=== PATIENT | male | born 1965 | race Caucasian/White ===

== ENCOUNTER 2017-02-15 20:19 | Day surgery (SDC) | payer OTHER ==
[~2017-02-15] VITALS: Ht 180.3 cm; Wt 97.5 kg
[~2017-02-15 20:19] MED LIST: BENADRYL25 MG PO
[2017-02-15] MEDS ORDERED: OXYBUTYNIN CHLOR5 MG PO (20:39)
[2017-02-15] MEDS ORDERED: NEURONTIN400 MG PO (20:40)
[2017-02-15] MEDS ORDERED: EFFEXOR XR150 MG PO (20:40)
--- NOTE | 2017-02-15 23:36 | NUR ---
02/15/17 2336 Rosalva Paula REPORT FROM [employer].
--- NOTE | 2017-02-16 10:38 | HP ---
[facility] [address], [place] [address] Signed DATE OF SERVICE: 02/15/2017 REFERRING PHYSICIAN: Dr. Roz Serra. CHIEF COMPLAINT: Esophageal/gastric foreign body. HISTORY OF PRESENT ILLNESS: Andreas is a 51-year-old gentleman from [facility]. Last year, he swallowed a couple of razors. This year, he decided to swallow 2 or 3 paper clips that he tied together with a string. He was hoping someone would open the door, and it would pull them up to his esophagus and damage his esophagus. Later, the string cut down his esophagus, and now they are other stuck. He was brought to our emergency room for evaluation. The chest x-ray and abdominal x-ray show at least 2 paper clips, one at the GE junction and one in what appears to be the fundus of the stoma c h. I really cannot see a third paper clip, and we have looked through the entire abdomen. In the meantime, he has done well. Of course, he has no shortness of breath or increased work of breathing. He is not systemically ill or toxic. I was asked to see him as a general surgeon here in the ER. PAST MEDICAL HISTORY: Hepatitis C virus, restless legs syndrome, and depression. PAST SURGICAL HISTORY: Left ACL repair with some pins remaining in his knee. He had an upper endoscopy in January 2016 for the razors with Dr. Dick. SOCIAL HISTORY: He does not smoke or drink. Dr. Fede Busch is his primary care provider. He is originally from [place], [place]. He is single. He has no children. FAMILY HISTORY: Not reviewed. REVIEW OF SYSTEMS: He had 10 systems reviewed and seems to be fine otherwise. ALLERGIES: Tetracycline and erythromycin. MEDICATIONS: Oxybutynin, Effexor, meloxicam, Requip, and gabapentin. PHYSICAL EXAMINATION: VITAL SIGNS: His blood pressure is 166/63, heart rate 56, his respiratory rate is 16, his temperature is 98.3. He is 99% on room air. He is 5 feet 11 inches at 97 kg. Electronically Signed By: LUANA JIMENEZ MD 02/16/17 1038 PATIENT NAME: ANDREAS BUCHANAN HISTORY AND PHYSICAL DATE OF : 65 PHYSICIAN: LUANA JIMENEZ MD REPORT #: [id number] REPORT IS CONFIDENTIAL AND NOT TO BE RELEASED WITHOUT AUTHORIZATION [facility] [address] [place] [id number] Signed GENERAL: Andreas is a 51-year-old gentleman lying supine in his ER bed. Two officers are with him. He does not appear systemically ill or toxic. LUNGS: Generally clear to auscultation bilaterally. HEART: Regular rate and rhythm. ABDOMEN: Soft, nontender. LABORATORIES: None. RADIOGRAPHIC STUDIES: His abdominal and chest x-rays are reviewed along with the reports. I can see what looks like a clip at the GE junction and one in the fundus of the stomach. I cannot specifically see a third clip. ASSESSMENT/PLAN: Andreas is a 51-year-old gentleman with an esophageal and gastric foreign body. Our ER doctor did take the time to call [facility] and [facility] who recommended they should probably be removed. Naturally, I was called to come and see him here in the emergency room. I met with Gagan. He went through this last year. He is very familiar with this whole process. We are going to call our crew, and we will go ahead and remove these foreign bodies for him with our upper scope. He understands there is risk, including, but not limited to, gas bloating, crampy abdominal pain, bleeding, perforation requiring surgery, and missed diagnosis. He has expressed understanding and would like to proceed. MD CHIRAG [place]/Darell /[id number] cc: Fede Busch MD Electronically Signed By: LUANA JIMENEZ MD 02/16/17 1038 PATIENT NAME: ANDREAS BUCHANAN HISTORY AND PHYSICAL DATE OF : 65 PHYSICIAN: LUANA JIMENEZ MD REPORT #: [id number] REPORT IS CONFIDENTIAL AND NOT TO BE RELEASED WITHOUT AUTHORIZATION
--- NOTE | 2017-02-16 10:38 | OR ---
[facility] [address] [place], [place] [address] Signed DATE OF SERVICE: 02/15/2017 PREOPERATIVE DIAGNOSIS: Esophageal/gastric foreign body x3. POSTOPERATIVE DIAGNOSIS: Esophageal/gastric foreign body x3. PROCEDURE: Esophagogastroduodenoscopy with foreign body removal x3. ESTIMATED BLOOD LOSS: None. INDICATIONS: Andreas is a 51-year-old gentleman [facility]. He took three paperclips and tied them individually to a string and had swallowed it down his esophagus. He had placed the string on the door and was someone would open the door and rip the paperclips out of his esophagus open to cause damage. Unfortunately, the string got down his esophagus, lost that and decided he better tell the officers. He was brought to our local emergency room for evaluation. On the x-ray, we really can only see two of the clips, but he insisted there were three. He had also eaten at around 4 o'clock this afternoon. I met with Andreas in the ER and I called in the crew. We discovered that Andreas went through this last year when he swallowed several razor blades. Andreas is very familiar with upper endoscopy and foreign body removal. He does understand that there is risk including, but not limited to gas, bloating, crampy abdominal pain, bleeding, perforation requiring surgery, and missed diagnosis. He had expressed understanding and wished to proceed. PROCEDURE NOTE: Andreas was taken into our endoscopy suite and placed in the supine semi-recumbent position. He was placed under general endotracheal tube anesthesia. We used our bite block next to the ET tube. The adult gastroscope was introduced and advanced under direct visualization of the camera down the esophagus. When we got to the GE junction, we could see the orange string that he used from his uniform to tie the paperclips onto the string. We could see the first paperclip, so we grabbed the string and we gently withdrew the string all the way up to the oropharynx along with the three paperclips. All were quite evident to myself and everyone in the room. There was no resistance in pulling the foreign bodies out of the esophagus. We then reinserted the gastroscope all the way back into the stomach. He does have gastritis, but he had quite a bit of food in his stomach as well. The scope was retroflexed and he did not seem to have any bleeding or damage around the GE junction. The scope was withdrawn up through the area of the GE junction and we very carefully examined the entire length of the esophagus, and again no obvious evidence of any damage or perforation that we could see. After this, the gas was suction ed out and the gastroscope removed. Andreas tolerated the procedure quite well. Electronically Signed By: LUANA JIMENEZ MD 02/16/17 1038 PATIENT NAME: ANDREAS BUCHANAN OPERATIVE REPORT DATE OF : 65 PHYSICIAN: LUANA JIMENEZ MD REPORT #: [id number] REPORT IS CONFIDENTIAL AND NOT TO BE RELEASED WITHOUT AUTHORIZATION [address] [address] Signed RECOMMENDATIONS: Andreas can follow up in my office as needed. MD CHIRAG [place]/Modl /[id number] cc: MD Fede [place] M.D Electronically Signed By: LUANA JIMENEZ MD 02/16/17 1038 PATIENT NAME: ANDREAS BUCHANAN OPERATIVE REPORT DATE OF : 65 PHYSICIAN: LUANA JIMENEZ MD REPORT #: [id number] REPORT IS CONFIDENTIAL AND NOT TO BE RELEASED WITHOUT AUTHORIZATION
[2017-07-10] MEDS ORDERED: NEURONTIN800 MG PO (07:21)
[2017-07-10] MEDS ORDERED: DIPHENHYDRAMINE50 M1 PO (07:22)
[2017-07-10] MEDS ORDERED: ADULT LOW DOSE81 MG PO (07:23)
[2017-07-10] MEDS ORDERED: HYDROCODON-ACE1 EA12 PO (12:23)
== END 2017-02-15 23:59 | disposition home or self-care (01) ==
LOC: ED 20:19 → DS 23:28
PROVIDERS: Colon & Rectal Surgery
PROC: 0DC58ZZ Extirpation of Matter from Esophagus, Via Natural or Artificial Opening Endoscopic (ICD-10-PCS; principal; 2017-02-15 23:21)
DX: T18.198A Other foreign object in esophagus causing other injury, initial encounter (principal); G25.81 Restless legs syndrome; F32.9 Major depressive disorder, single episode, unspecified; Z98.890 Other specified postprocedural states
CPT/HCPCS: 00740; 71010; 74000; 99285; J0330; J2704

== ENCOUNTER 2017-02-19 02:56 | Emergency (ER) | payer OTHER ==
[~2017-02-19] VITALS: Ht 180.3 cm; Wt 97.5 kg
[~2017-02-19 02:56] MED LIST changes: +EFFEXOR XR150 MG PO; +NEURONTIN400 MG PO; +OXYBUTYNIN CHLOR5 MG PO
[2017-07-10] MEDS ORDERED: NEURONTIN800 MG PO (07:21)
[2017-07-10] MEDS ORDERED: DIPHENHYDRAMINE50 M1 PO (07:22)
[2017-07-10] MEDS ORDERED: ADULT LOW DOSE81 MG PO (07:23)
[2017-07-10] MEDS ORDERED: HYDROCODON-ACE1 EA12 PO (12:23)
== END 2017-02-19 06:41 | disposition home or self-care (01) ==
LOC: ED 02:56
DX: T14.91 Suicide attempt (principal); M25.561 Pain in right knee; F32.9 Major depressive disorder, single episode, unspecified; Z86.19 Personal history of other infectious and parasitic diseases; Z88.1 Allergy status to other antibiotic agents; Z79.899 Other long term (current) drug therapy; X83.8XXA Intentional self-harm by other specified means, initial encounter
CPT/HCPCS: 70491; 73560; 80053; 80176; 81001; 85025; 99284; G0480; Q9967

== ENCOUNTER 2018-08-14 15:27 | Day surgery (SDC) | payer OTHER ==
[~2018-08-14] VITALS: Ht 180.3 cm; Wt 95.2 kg
[~2018-08-14 15:27] MED LIST changes: +ADULT LOW DOSE81 MG PO; +DIPHENHYDRAMINE50 M1 PO; +HYDROCODON-ACE1 EA12 PO; +NEURONTIN800 MG PO
[2018-08-14] MEDS ORDERED: ALPHA LIPOIC A200 MG PO (15:33)
[2018-08-14] MEDS ORDERED: NORTRIPTYLINE H50 MG PO (15:34)
--- NOTE | 2018-08-14 18:14 | NUR ---
08/14/181813 Liza Landa 180 PATIENT ARRIVES TO PACU AWAKE, BUT VERY DROWSY. MASK AT 6 LITERS, SATS 100%, RESP EVEN AND UNLABORED, MASK OFF. ROOM AIR SATS >90%. 1809 PATIENT CONTINUES TO BE VERY DROWSY, WHEN NOT STIMULATED, SATS HOVER AROUND 90% ON ROOM AIR. PATIENT PLACED ON NC AT 4 LITERS.
--- NOTE | 2018-08-14 19:12 | NUR ---
PT ARRIVES FROM OR, BEDSIDE REPORT FROM WINNIE ALSTON. PT DENIES PAIN,. NAUSEA OR SOB. PT STATES "COULD I GET SOME DINNER PLEASE?". wILL REVIEW DIET ORDER. VSS. [facility] OFFICERS AT BEDSIDE MONITORING PT. CALL LIGHT IN REACH. NO FURTHER NEEDS OR CONCERNS VOICED. ASSESSMENT WAS COMPLETED. PT APPEARS TO BE IN NO ACUTE DISTRESS.
--- NOTE | 2018-08-14 19:56 | NUR ---
PT RESTING IN BED, AOX4, [facility] GUARDS AT BEDSIDE X2, PT DENIES ANY PAIN, DENIES ANY NAUSEA. PT ATE 100% OF HIS MEAL, PT DENIES ANY DIFFICULTY WITH EATING. PT DENIES ANY PAIN. PT'S VSS. SEE EMAR. AFEBRILE. PT'S IV REMOVED FROM PT'S LEFT AC, TIP INTACT, DISCHARGE INSTRUCTION GIVEN TO PT. PAPERWORK GIVEN TO [facility] GUARDS. PT AWAY FROM FLOOR NOW, ACCOMPANIED BY 2 [facility] GUARDS WELL 2 FUEL HOUSE ATTENDANT'S. QUESTIONS ANSWERED, PT DENIES FURTHER NEEDS.
--- NOTE | 2018-08-14 20:04 | EKG ---
[facility] [address] [facility] [place] [address] Signed Sinus bradycardia Rightward axis Prolonged QT Abnormal ECG No previous ECGs available Confirmed by NUNU NARAYANAN MD ([id number]) on 08/14/2018 8:04:32 PM Electronically Signed By: NUNU NARAYANAN MD 08/14/18 2004 PATIENT NAME: BUTCH BUCHANAN Electrocardiogram DATE OF : 65 PHYSICIAN: NUNU NARAYANAN MD REPORT #: [id number] REPORT IS CONFIDENTIAL AND NOT TO BE RELEASED WITHOUT AUTHORIZATION
--- NOTE | 2018-08-15 07:05 | OR ---
[facility] [address] [place], [place] [address] Signed DATE OF OPERATION: 08/14/2018 SURGEON: Luana Jimenez MD PREOPERATIVE DIAGNOSIS: 1. Possible esophageal or gastric foreign bodies. POSTOPERATIVE DIAGNOSES: 1. No visible evidence of esophageal or gastric foreign bodies. 2. Small to moderate sized antral gastric ulcers x3. PROCEDURES: EGD with CLOtest and biopsies of the antrum. ESTIMATED BLOOD LOSS: None. INDICATIONS: Andreas is a 53-year-old gentleman [facility] [place]. He has a habit of swallowing various foreign bodies including razor blades. Today, he had tied a string onto a portion of a razor blade as well as 1/3 portion of a black comb. He had swallowed this and therefore was brought to our local emergency room by the staff. Our ER doctor had removed the string and the razor blade and the comb. He underwent chest and abdominal x-rays and there was no radiographic evidence of any foreign bodies. I have been asked to see him as a general surgeon on-call. Andreas had been through this back in 2017. Consequently, Andreas is very familiar with upper endoscopy. He understands the nature of the test along with the risks including, but not limited to gas bloating, crampy abdominal pain, bleeding, perforation requiring surgery, and missed diagnosis. Also, he understands the need for anesthesia provider to protect his airway. He had expressed understanding and wished to proceed. PROCEDURE NOTE: Andreas was taken into our endoscopy suite and placed in the supine semi-recumbent position. He was placed under general endotracheal tube anesthesia per nurse school age teacher. In the meantime, his laboratory work came back and it was unremarkable. The adult gastroscope was then introduced and it easily advanced under direct visualization down the esophagus through the GE junction out into the stomach. We then traveled out into the duodenum itself. The duodenum and pyloric channel were unremarkable. However, back in the antrum, he had at least three small to moderate-sized nonbleeding antral gastric ulcers. It was possible there were two Electronically Signed By: LUANA JIMENEZ MD 08/15/18 0705 PATIENT NAME: ANDREAS BUCHANAN OPERATIVE REPORT DATE OF : 65 REPORT #: [id number] PHYSICIAN: LUANA JIMENEZ MD PCP: TAN DORADO MD REPORT IS CONFIDENTIAL AND NOT TO BE RELEASED WITHOUT AUTHORIZATION [facility] [address] [place], [place] [address] Signed additional ulcers for a total of five, but it was hard to see underneath the saliva. He clearly has inflammatory changes throughout the stomach consistent with mild to moderate gastritis as well. The scope was then retroflexed and we saw no evidence of a hiatal hernia. Certainly, no active bleeding. The scope was withdrawn up through the area of the GE junction, which was compliant without stricture. There was no gastric or esophageal varices. The Z-line remains intact. He had a couple of areas in the esophagus that were superficially abraded from the foreign bodies in the esophagus, but otherwise no evidence of any bleeding or perforation. No evidence of any esophagitis. After this, the scope had been withdrawn up into the posterior oropharynx. I did not see any evidence of any injury in the posterior oropharynx. The gastroscope was then removed. Andreas tolerated the procedure quite well. He was weaned from his anesthesia, extubated in the endoscopy suite and taken into recovery room in stable condition. RECOMMENDATIONS: Andreas will be returned to the [facility] this evening. He should take a proton pump inhibitor twice a day for three months to allow his ulcers to heal. After that, he could be reduced to a H2 rogelio. I will see him in followup anywhere between 30 and 60 days depending on the schedule at our [facility]. Luana Jimenez MD ALB/MODL /[id number] cc: MD Luana Monahan MD Copies: ANGEL GONZALEZ MD, ANDREW L MD ~ Electronically Signed By: LUANA JIMENEZ MD 08/15/18 0705 PATIENT NAME: ANDREAS BUCHANAN OPERATIVE REPORT DATE OF : 65 REPORT #: [id number] PHYSICIAN: LUANA JIMENEZ MD PCP: TAN DORADO MD REPORT IS CONFIDENTIAL AND NOT TO BE RELEASED WITHOUT AUTHORIZATION
--- NOTE | 2018-08-15 07:05 | CONS ---
[facility] [address] [place], [place] [address] Signed DATE OF CONSULTATION: 08/14/2018 CHIEF COMPLAINT: Esophageal foreign body. HISTORY OF PRESENT ILLNESS: Andreas is a 53-[facility]-old gentleman [facility] [place]. He has a habit of swallowing various esophageal foreign bodies including razor blades. A year or so ago, I had to take some foreign bodies out of his esophagus. He is brought in today by the staff from our [facility] having swallowed at least a part of razor blade attached to a string. He is not sure if there was one or two or the entire thing was swallowed and he never did admit to swallowing a comb. In the meantime, our ER doctor pulled the string out, and out came 1/4th of a razor blade and about 1/3th of a comb. In the meantime, he has received a chest x-ray and it looks unremarkable with respect to esophageal foreign bodies and just had abdominal x-rays done and it looks like it is okay with respect to foreign bodies, but there might be something in the left upper quadrant, which we are not entirely sure. In the meantime, he has not had any serious complaint or vomiting a blood and so forth. He seems to be hemodynamically stable. I was asked to come see him in the emergency room for consideration of upper endoscopy before he goes back to the [facility]. PAST MEDICAL HISTORY: Hepatitis C virus, restless legs syndrome, and depression. PAST SURGICAL HISTORY: Includes a left ACL repair and EGD, I should say upper endoscopy. SOCIAL HISTORY: He does not smoke or drink. He is a resident at the [facility] under Dr. Fede Busch. FAMILY HISTORY: Unknown. REVIEW OF SYSTEMS: I reviewed 10 systems with Andreas and no new findings. ALLERGIES: Tetracycline and erythromycin base. MEDICATIONS: Oxybutynin, gabapentin, diphenhydramine, alpha-lipoic acid, nortriptyline. Electronically Signed By: LUANA JIMENEZ MD 08/15/18 0705 PATIENT NAME: ANDREAS BUCHANAN CONSULTATION DATE OF : 65 REPORT #: [id number] PHYSICIAN: LUANA JIMENEZ MD PCP: TAN DORADO MD REPORT IS CONFIDENTIAL AND NOT TO BE RELEASED WITHOUT AUTHORIZATION [facility] [address] [place], [place] [address] Signed PHYSICAL EXAMINATION: VITAL SIGNS: Blood pressure is 126/77, his heart rate is 61, his respiratory rate is 18, temperature is 98.0, he is 97% on room air. He is 5 feet and 11 inches and 95 kg. GENERAL: Andreas is a 53-year-old gentleman, semi-recumbent in his ER bed, his officers are with him. He is alert, awake, and interactive, although not overly cooperative. He does not appear to be systemically ill or toxic. He certainly controls his secretions and has had no vomiting. LUNGS: Clear to auscultation. HEART: Regular rate and rhythm. ABDOMEN: Soft, flat, and nontender. LABORATORY DATA: Pending. RADIOGRAPHIC STUDIES: Chest x-ray and the abdominal x-rays are reviewed, prior to the official read from the radiologist, there was no obvious foreign body noted. There may or may not be something in the left upper quadrant on abdominal x-ray, but it is not clear. ASSESSMENT AND PLAN: Andreas is a 53-year-old gentleman from our [facility] [place]. He certainly had an esophageal foreign body with a part of the colon and part of a razor blade attached to a string, that has been removed by our ER doctor. At this point, we are going to wait until our OR crew is available and we are going to get him to endoscopy suite here. In due time, we will sedate him with the help of our anesthesia provider. We will check his esophagus and stomach. If all that is negative, he will be transported back to the [facility]. I reviewed all this with Andreas in detail. He is very familiar with upper endoscopy, having undergone upper endoscopy before. He is aware of the risks including, but not limited to gas bloating, crampy abdominal pain, bleeding, perforation, requiring surgery and missed diagnosis. He has expressed understanding and would like to proceed. Luana Jimenez MD ALB/MODL /[id number] Electronically Signed By: LUANA JIMENEZ MD 08/15/18 0705 PATIENT NAME: ANDREAS BUCHANAN CONSULTATION DATE OF : 65 REPORT #: [id number] PHYSICIAN: LUANA JIMENEZ MD PCP: TAN DORADO MD REPORT IS CONFIDENTIAL AND NOT TO BE RELEASED WITHOUT AUTHORIZATION [facility] [address] [place] [address] Signed cc: MD Fede Jacob MD Copies: LUANA JIMENEZ MD, LELAND MD ~ Electronically Signed By: LUANA JIMENEZ MD 08/15/18 0705 PATIENT NAME: ANDREAS BUCHANAN CONSULTATION DATE OF : 65 REPORT #: [id number] PHYSICIAN: LUANA JIMENEZ MD PCP: TAN DORADO MD REPORT IS CONFIDENTIAL AND NOT TO BE RELEASED WITHOUT AUTHORIZATION
== END 2018-08-14 20:00 | disposition home or self-care (01) ==
LOC: ED 15:27 → DS 16:42 → MS 18:15 → DS 20:00
PROVIDERS: Colon & Rectal Surgery
PROC: 0DB78ZX Excision of Stomach, Pylorus, Via Natural or Artificial Opening Endoscopic, Diagnostic (ICD-10-PCS; principal; 2018-08-14 17:04)
DX: K29.50 Unspecified chronic gastritis without bleeding (principal); K25.9 Gastric ulcer, unspecified as acute or chronic, without hemorrhage or perforation; G25.81 Restless legs syndrome; B19.20 Unspecified viral hepatitis C without hepatic coma; Z88.1 Allergy status to other antibiotic agents; Z79.899 Other long term (current) drug therapy
CPT/HCPCS: 71045; 74018; 74019; 80048; 85025; 86677; 93005; 93010; 99285-25; J0330; J2250; J2405; J2704; J3010; J7120